=== PATIENT | male | born 1970 | race Caucasian/White ===

== ENCOUNTER → 2016-11-09 | Outpatient (CLI) | payer BC ==
[~2016-11-09] MED LIST: ASPERDRINK81 MG PO; AVAPRO300 M1 PO; BYSTOLIC20 MG PO; EFFIENT10 MG PO; FISH OIL 1,0001 CAP PO; KEPPRA1000 MG PO; LIPITOR PO; MULTI-VITAMIN1 EAC1 PO; OMEPRAZOLE40 MG PO; PRISTIQ50 MG PO; VIMPAT100 MG PO
--- NOTE | ~2016-11-09 | CT71 ---
[facility] A Service of [facility] RADIOLOGY TEXT RESULTS PATIENT: CARMELO JACKSON LOCATION: [facility] : 72 UNIT #: [id number] AGE: [address]: Joshua Witt II, MD SEX: M ORDER DR: [id number] [place] [id number] O MR#: [id number] Acc #: [id number] NAME: CARMELO JACKSON : 1970 SEX: M STUDY DATE/TIME: 11/09/2016 13:25 UNIT: [facility] ROOM: STUDY DESCRIPTION: CT Head Wo Contrast Attending Physician: Joshua Witt II., M.D. Referring Physician: Joshua Witt II., M.D. Ordering Physician: Joshua Witt II., M.D. Primary Care Physician: Brigid Lynne Aprn MEDICAL IMAGING REPORT This report is preliminary unless electronic signature is present. EXAM CT of the head without contrast INDICATION Seizure. Patient's seizures started in 1994. TECHNIQUE Axial CT images were obtained from the vertex of the skull through skull base no intravenous contrast was administered. This CT exam was performed with one or more of the following radiation dose reduction techniques: automatic control, adjustment of mA and/or kV according to patient size, and iterative reconstruction. FINDING No acute intracranial hemorrhage is identified. Brain parenchyma is normal in attenuation with no focal areas of decreased attenuation seen. There is no midline shift or mass effect. The ventricles are normal in size. Visualized paranasal sinuses and mastoid air cells appear clear. There are no focal soft tissue abnormalities. IMPRESSION No acute intracranial process identified. Specifically there is no evidence of acute hemorrhage, mass lesion or acute infarct. Dictated by... Addie Oliver M.D. THIS IS AN ELECTRONICALLY VERIFIED REPORT Addie Oliver M.D. at 11/11/2016 12:25 PM AFF/rnr [facility] A Service of [facility] RADIOLOGY TEXT RESULTS PATIENT: CARMELO JACKSON LOCATION: [facility] : 72 UNIT #: [id number] AGE: [address]: Joshua Witt II, MD SEX: M ORDER DR: TD: 11/09/2016 23:13 JOB #: [id number] MEDICAL IMAGING REPORT Page 1 of 1
== END | disposition home or self-care (01) ==
LOC: SCT 13:10
DX: G40.209 Localization-related (focal) (partial) symptomatic epilepsy and epileptic syndromes with complex partial seizures, not intractable, without status epilepticus (principal); R56.9 Unspecified convulsions
CPT/HCPCS: 70450